=== PATIENT | female | born 1965 | race Two or more races ===

== ENCOUNTER 2022-04-19 20:20 | Emergency (ER) | payer MEDICAID ==
[~2022-04-19] VITALS: Ht 154.9 cm; Wt 63.0 kg
[2022-04-19 21:11] LABS: CLARITY,URINE SLIGHTLY CLOUDY (Clear); COLOR,URINE YELLOW (Yellow); GLUCOSE, URINE NEGATIVE (Neg); KETONES,URINE NEGATIVE (Neg); LEUKOCYTE ESTERASE ,URINE LARGE (Neg); NITRITES, URINE NEGATIVE (Neg); OCCULT BLOOD,URINE SMALL (Neg); PH,URINE 6.5 (4.8-8.0); PROTEIN,URINE NEGATIVE (Neg); UROBILINOGEN,URINE 0.2 E.U/dL (0.2-1.0)
[2022-04-19 21:20] LABS: UA COLLECTION TYPE CLN CATCH MIDSTREAM
[2022-04-19 21:22] LABS: TRICHOMONAS,URINE FEW /HPF (NEGATIVE)
[2022-04-19 21:23] LABS: BACTERIA,URINE 1+ /HPF (Neg); RBC,URINE 0-2 /HPF (0-2); SQUAMOUS EPITHELIAL CELL,UR FEW /LPF (FEW); WBC,URINE 20-30 /HPF (0-4)
[2022-04-19 21:28] LABS: BASOPHILS # (AUTO) 0.1 X10'3 (0-0.2); BASOPHILS % (AUTO) 0.4 % (0-1); EOSINOPHILS # (AUTO) 0.5 X10'3 (0-0.9); EOSINOPHILS % (AUTO) 3.7 % (0-6); HEMATOCRIT 37.8 % (35.0-45.0); HEMOGLOBIN 12.8 g/dl (12.0-16.0); LYMPHOCYTES % (AUTO) 15.1 % (21-51); MEAN CORPUSCULAR HEMOGLOBIN 29.2 PG (27.0-31.0); MEAN CORPUSCULAR HGB CONC 33.9 g/dL (33.0-36.5); MEAN PLATELET VOLUME 7.6 FL (7.4-10.4); MONOCYTES # (AUTO) 1.2 X10'3 (0-0.9); MONOCYTES % (AUTO) 8.9 % (2-12); NEUTROPHILS # (AUTO) 9.5 X10'3 (1.8-7.7); NEUTROPHILS % (AUTO) 71.9 % (42-75); PLATELET COUNT 419 X10'3 (140-440); RED CELL DISTRIBUTION WIDTH 13.9 % (11.5-14.5); WHITE BLOOD COUNT 13.2 X10'3 (4.5-11.0)
[2022-04-19 21:33] LABS: ALANINE AMINOTRANSFERASE 17 U/L (12-78); ALBUMIN 3.1 G/DL (3.4-5.0); ALBUMIN/GLOBULIN RATIO 0.7 (1.1-1.5); ALKALINE PHOSPHATASE 102 IU/L (46-116); ANION GAP 9 (8-16); ASPARTATE AMINO TRANSFERASE 13 U/L (10-37); BILIRUBIN,TOTAL 0.2 MG/DL (0.1-1.0); BLOOD UREA NITROGEN 9 MG/DL (7-18); BUN/CREATININE RATIO 12.7 (6.6-38.0); CALCIUM 9.2 MG/DL (8.5-10.1); CHLORIDE 104 MMOL/L (99-107); CREATININE 0.71 MG/DL (0.40-0.90); GLUCOSE 90 MG/DL (70-104); POTASSIUM 3.4 MMOL/L (3.5-5.1); SODIUM 140 MMOL/L (135-145); TOTAL CARBON DIOXIDE 27.3 MMOL/L (24-32); TOTAL PROTEIN 7.5 G/DL (6.4-8.2); eGFR 86 ML/MIN
[2022-04-19] MEDS ORDERED: acetaminophen 325mg tablet PO ONE (21:35)
[2022-04-19] MEDS ORDERED: cefTRIAXone 1g/NS 100ml IVPB 100 ML IV ONE (21:35)
[2022-04-19] MEDS ORDERED: normal saline 1000ML IV soln IV ONE (21:35)
[2022-04-19] MEDS ORDERED: sulfamethoxazole/trimethoprim DS (800/160mg) tablet PO ONE (21:40)
[2022-04-19] MEDS ORDERED: SULF1TAB45 PO (21:53)
[2022-04-19] MEDS ORDERED: MUPI22OI30 TOP (21:53)
[2022-04-19 23:52] VITALS: BP 139/88
== END 2022-04-19 23:34 | disposition home or self-care (01) ==
LOC: ER 20:20
DX: A49.02 Methicillin resistant Staphylococcus aureus infection, unspecified site (principal); N39.0 Urinary tract infection, site not specified; Z88.8 Allergy status to other drugs, medicaments and biological substances
CPT/HCPCS: 36415; 71045; 80053; 81001; 83605; 84145; 85025; 87040; 87088; 96365; 99284; J0696; J7030

== ENCOUNTER 2022-06-24 16:59 | Emergency (ER) | payer MEDICAID ==
[~2022-06-24] VITALS: Ht 154.9 cm; Wt 68.2 kg
[2022-06-24 17:06] VITALS: BP 135/78
[2022-06-24 17:58] LABS: BASOPHILS # (AUTO) 0.1 X10'3 (0-0.2); BASOPHILS % (AUTO) 0.9 % (0-1); EOSINOPHILS # (AUTO) 0.1 X10'3 (0-0.9); EOSINOPHILS % (AUTO) 1.1 % (0-6); HEMATOCRIT 39.9 % (35.0-45.0); HEMOGLOBIN 13.3 g/dl (12.0-16.0); LYMPHOCYTES # (AUTO) 2.3 X10'3 (1.1-4.8); LYMPHOCYTES % (AUTO) 24.5 % (21-51); MEAN CORPUSCULAR HEMOGLOBIN 29.1 PG (27.0-31.0); MEAN CORPUSCULAR HGB CONC 33.4 g/dL (33.0-36.5); MEAN CORPUSCULAR VOLUME 87.1 FL (78-98); MONOCYTES # (AUTO) 0.7 X10'3 (0-0.9); MONOCYTES % (AUTO) 7.6 % (2-12); NEUTROPHILS # (AUTO) 6.3 X10'3 (1.8-7.7); NEUTROPHILS % (AUTO) 65.9 % (42-75); PLATELET COUNT 350 X10'3 (140-440); RED BLOOD COUNT 4.58 X10'6 (4.20-5.60); RED CELL DISTRIBUTION WIDTH 15.4 % (11.5-14.5); WHITE BLOOD COUNT 9.6 X10'3 (4.5-11.0)
[2022-06-24 18:13] LABS: ALANINE AMINOTRANSFERASE 22 U/L (12-78); ALBUMIN 3.6 G/DL (3.4-5.0); ALBUMIN/GLOBULIN RATIO 0.9 (1.1-1.5); ALKALINE PHOSPHATASE 95 IU/L (46-116); ANION GAP 9 (8-16); ASPARTATE AMINO TRANSFERASE 17 U/L (10-37); BILIRUBIN,TOTAL 0.2 MG/DL (0.1-1.0); BLOOD UREA NITROGEN 19 MG/DL (7-18); BUN/CREATININE RATIO 28.8 (6.6-38.0); CALCIUM 9.3 MG/DL (8.5-10.1); CHLORIDE 105 MMOL/L (99-107); CREATININE 0.66 MG/DL (0.40-0.90); GLUCOSE 98 MG/DL (70-104); POTASSIUM 3.3 MMOL/L (3.5-5.1); SODIUM 145 MMOL/L (135-145); TOTAL CARBON DIOXIDE 31.1 MMOL/L (24-32); TOTAL PROTEIN 7.7 G/DL (6.4-8.2); eGFR > 90 ML/MIN
== END 2022-06-24 22:15 | disposition left against medical advice (07) ==
LOC: ER 17:00
DX: M79.606 Pain in leg, unspecified (principal); Z53.21 Procedure and treatment not carried out due to patient leaving prior to being seen by health care provider
CPT/HCPCS: 36415; 71045; 80053; 83605; 84145; 85025; 87040

== ENCOUNTER 2023-01-01 09:30 | Emergency (ER) | payer MEDICAID ==
[~2023-01-01] VITALS: Ht 162.6 cm; Wt 63.6 kg
[2023-01-01 09:40] VITALS: BP 145/88
[2023-01-01] MEDS ORDERED: pantoprazole 40 MG vial IV ONE (11:05)
[2023-01-01] MEDS ORDERED: ketorolac trometh inj. 60 MG/2 ML VIAL IM ONE (11:15)
[2023-01-01] MEDS ORDERED: pantoprazole 40MG/NS 100ML BAG 100 ML IV ONE (11:15)
== END 2023-01-01 11:47 | disposition home or self-care (01) ==
LOC: ER 09:31
DX: M79.604 Pain in right leg (principal); F17.200 Nicotine dependence, unspecified, uncomplicated; Z89.511 Acquired absence of right leg below knee; Z98.890 Other specified postprocedural states; Z88.0 Allergy status to penicillin; Z88.5 Allergy status to narcotic agent; Z88.8 Allergy status to other drugs, medicaments and biological substances
CPT/HCPCS: 96372; 99283; J1885

== ENCOUNTER 2024-04-05 10:06 | Emergency (ER) | payer MEDICAID ==
[~2024-04-05] VITALS: Ht 154.9 cm; Wt 49.0 kg
[2024-04-05 10:10] VITALS: TEMP 98.3
[2024-04-05] MEDS ORDERED: ketorolac trometh. 30mg/ml inj. IM ONE (10:15)
[2024-04-05] MEDS: ketorolac tromethamine 15mg/ml inj. IM ONE (10:26)
[2024-04-05] MEDS: TETanus/Pertussis (Acell)/Diphther VAC/PF (Tdap-Adult) 0.5ml syringe IMVAC ONE (10:28)
[2024-04-05] MEDS: CefTRIAXone 1000mg IM Kit (w/lidocaine diluent) IM ONE (10:30)
[2024-04-05] MEDS ORDERED: CLIN-197 PO (10:48)
[2024-04-05 10:58] VITALS: BP 121/85; PULSE 90; RESP 14; O2SAT 99
== END 2024-04-05 10:59 | disposition home or self-care (01) ==
LOC: ER 10:06
DX: L08.89 Other specified local infections of the skin and subcutaneous tissue (principal); L03.818 Cellulitis of other sites; R59.0 Localized enlarged lymph nodes; Z88.0 Allergy status to penicillin; Z88.8 Allergy status to other drugs, medicaments and biological substances
CPT/HCPCS: 90471; 90715; 96372; 99284; J0696; J1885

== ENCOUNTER 2024-07-25 09:34 | Emergency (ER) | payer MEDICAID ==
[~2024-07-25] VITALS: Ht 157.5 cm; Wt 51.5 kg
[2024-07-25 11:06] VITALS: BP 126/68; PULSE 86; RESP 16; TEMP 97.9; O2SAT 98
[2024-07-25] MEDS ORDERED: HYDR-3965 PO (13:35)
== END 2024-07-25 11:08 | disposition home or self-care (01) ==
LOC: ER 09:35
DX: S92.251A Displaced fracture of navicular [scaphoid] of right foot, initial encounter for closed fracture (principal); Z98.890 Other specified postprocedural states; Z79.899 Other long term (current) drug therapy; X58.XXXA Exposure to other specified factors, initial encounter; Y93.89 Activity, other specified; Y92.89 Other specified places as the place of occurrence of the external cause; Y99.8 Other external cause status
CPT/HCPCS: 29125; 73110; 99283; A6449